=== PATIENT | female | born 1995 | race Caucasian/White ===

== ENCOUNTER 2016-10-03 10:46 | Emergency (ER) | payer BC ==
[~2016-10-03] VITALS: Ht 167.6 cm; Wt 63.6 kg
[~2016-10-03 10:46] MED LIST: NORCO 325 MG-51 TAB PO
[2016-10-03] MEDS ORDERED: PREDNISONE20 MG PO (10:50)
[2016-10-03] MEDS ORDERED: PROAIR HFA0.09 MG/AC IH (10:50)
[2016-10-03] MEDS ORDERED: BIRTH CONTROL (10:51)
[2016-10-03 13:02] LABS: INFLUENZA B NEGATIVE
[2016-10-03] MEDS ORDERED: TAMIFLU 75MG75 MG PO (13:06)
[2016-10-03 13:33] VITALS: BP 130/78; PULSE 90; TEMP 99.7
== END 2016-10-03 13:25 | disposition home or self-care (01) ==
LOC: COL.ER 10:46
PROVIDERS: Physician Assistant
DX: J10.1 Influenza due to other identified influenza virus with other respiratory manifestations (principal)